=== PATIENT | male | born 1995 | race Native Hawaiian/Other Pacific Islander ===

== ENCOUNTER 2022-03-07 10:53 | Emergency (ER) | payer OTHER ==
[~2022-03-07] VITALS: Ht 170.2 cm; Wt 72.6 kg
[2022-03-07 11:09] VITALS: TEMP 97.9
[2022-03-07] MEDS ORDERED: SUDAFED 12HR120 MG PO (11:25)
[2022-03-07] MEDS ORDERED: 904272561 PO (12:14)
[2022-03-07 12:44] VITALS: BP 122/62
== END 2022-03-07 12:44 | disposition home or self-care (01) ==
LOC: ED 10:53
DX: L02.11 Cutaneous abscess of neck (principal)
CPT/HCPCS: 96372; 99282; J0696